=== PATIENT | female | born 1980 ===

== ENCOUNTER 2024-09-25 06:12 | Day surgery (SDC) | payer BC, SELFPAY ==
[2024-09-21 13:35] LABS: % Basophils 0.5 % (0-2); % Eosinophils 4.7 % (0-6); % Immature Granulocytes 0.3 % (0-0.5); % Lymphocytes 33.6 % (20.5-51.1); % Neutrophils 53.9 % (42.2-75.2); Absolute Eosinophils 0.3 10^3/uL (0-0.7); Absolute Monocytes 0.4 10^3/uL (0.1-0.6); Absolute Neutrophils 3.2 10^3/uL (1.4-6.5); Hematocrit 38.5 % (37.0-47.0); Hemoglobin 12.3 g/dL (12.0-16.0); Mean Corp Hgb Conc. 31.9 g/dL (33.0-37.0); Mean Corpuscular Volume 93.9 fL (81.0-99.0); Mean Platelet Volume 10.2 fL (7.4-10.4); Nucleated Red Blood Cells % 0 %; Platelet Count 305 10^3/uL (130-400); Red Cell Dist. Width 12.9 % (11.5-14.5)
[2024-09-21 14:15] VITALS: BMI 27.1
[2024-09-21 14:37] LABS: Blood Urea Nitrogen 12 mg/dl (7-17); Calcium 9.3 mg/dl (8.4-10.2); Carbon Dioxide 29 mmol/L (22-30); Chloride 103 mmol/L (98-107); Estimated Creatinine Clearance 110 ml/min; Glucose 88 mg/dl (70-99); Potassium 5.4 mmol/L (3.5-5.1); Sodium 141 mmol/L (135-145); eGFR > 60.00
[2024-09-21 14:47] LABS: Beta HCG Quantitative < 2.39 mIU/ml
[2024-09-25] VITALS (11 sets, daily range): BP systolic 99–117; BP diastolic 64–85; BMI 27.1
[2024-09-25] MEDS: NEURONTIN 100 MG PO (08:15)
[2024-09-25] MEDS: TYLENOL 1000 MG PO (08:15)
--- NOTE | 2024-09-25 08:26 | W.SUR.PREOP ---
Pre-Operative Surgical Note
-
I have examined this patient prior to the performance of the scheduled procedure.
The patient's condition is unchanged from the time of the current History and
Physical and the patient is able to undergo the scheduled procedure.
[2024-09-25] MEDS: HEPARIN 5000 UNITS SC (08:39)
--- NOTE | 2024-09-25 09:54 | W.IMMPOSTOP ---
Surgical Immed Post Op Note
-
Primary Surgeon: Bess Bower,
Assisting Surgeon: none
Pre-op Diagnosis: Multiarity, requesting sterilization
Post-op Diagnosis: same, vulvar ingrown hair
Procedure Performed: Laparoscopic bilateral salpingectomy, incision and removal ingrown hair
Anesthesia Type: general ET, Dr. Rutledge
Specimen / Cultures: bilateral fallopian tubes
Estimated Blood Loss: 2ml
Urine output 300ml clear urine
Complications: none
Operative Findings: Normal appearing uterus, tubes and ovaries bilaterally. Vulvar ingrown hair-removed.
counts correct times 2
Stable to recovery
== END 2024-09-25 12:31 | disposition home or self-care (01) ==
LOC: SDS 06:12
PROVIDERS: ATTENDING PHYSICIAN Obstetrics & Gynecology
DX: Z30.2 Encounter for sterilization (principal)
CPT/HCPCS: 58661; 88302; 36415; 80048; 84702; 85025; 86850; 86900; 86901; C1776